=== PATIENT | female | born 1980 | race African-American/Black ===

== ENCOUNTER → 2021-04-04 02:25 | Outpatient (CLI) | payer OTHER, SELFPAY ==
[2021-04-04 19:19] LABS: SARS-CoV-2 RNA PCR Negative
== END ==
PROVIDERS: Visit Provider Internal Medicine Critical Care Medicine
DX: R68.89 Other general symptoms and signs (principal); Z20.822 Contact with and (suspected) exposure to COVID-19
CPT/HCPCS: C9803; U0003; U0005

== ENCOUNTER 2021-04-06 08:59 | Outpatient (CLI) | payer OTHER, SELFPAY ==
--- NOTE | 2021-04-08 18:21 | SLEEP_ITS ---
This report was moved to the correct visit on April 29, 2021. Original report was signed by Dr. Ana M Rubio on April 09, 2021 at 16:47. Sleep Study Date of Study: 04/06/21 Ordering Provider: Tree Montoya APRN Interpreting Physician: Ana M Rubio MD Sleep Study Type: Polysomnogram Height: 1.73 m Weight: 82.554 kg Body Mass Index: 27.6 Neck Circumference (inches): 14 [place]: 22 Reason for Sleep Study Excessive daytime sleepiness Sleep History Halley Farnsworth is a 41 year old female with excessive daytime sleepiness. She has nasal allergies, depression and GERD. She has a difficult time falling asleep and staying asleep. She describes having insomnia for 5 years without improvement with Ambien. She has nodded off at the wheel for 5 years. She is able to fall asleep standing and talking as well as eating. This has been going on for the last 2 and half years. It is also difficult for to fall asleep and stay asleep. She has been waking up earlier than expected for the last 10 years. She chokes in her sleep for the last 2 years. She twitches frequently at night. There is a family history of sleep issues with her mother having sleep apnea and insomnia. She frequently awakens from sleep feeling short of breath. She frequently awakens at night with heartburn, belching or coughing. She occasionally snores. She does not snore loudly enough that others complain about it. She occasionally has trouble sleeping the cold. She frequently wakes up gasping for breath during the night and frequently has breathing problems at night observed by others. She frequently sweats excessively at night and notices her heart pounding or beating irregularly at night. She occasionally falls asleep during the day, occasionally involuntarily and constantly this occurs while driving. She rarely has loss of muscle tone with strong emotion. She constantly has daytime difficulties due to excessive sleepiness. She frequently feels paralyzed on waking or falling asleep. She frequently has vivid dreamlike scenes upon awakening or falling asleep. She occasionally feels afraid to go to sleep. She occasionally has nightmares. She frequently remembers her dreams. She constantly has racing thoughts. She frequently feels sad or depressed. She constantly has anxiety. She constantly has muscular tension and notices parts of her body jerking. She constantly kicks at night. She frequently has crawling and aching feelings in her legs. She constantly has leg pain at night. She frequently has morning jaw pain. She does not grind her teeth during sleep. She constantly is bothered by pain during the day. She frequently is awakened by pain during the night. She constantly wakes up feeling stiff in the morning with sore or achy muscles and pain in the neck and spine. She has memory problems and fatigue. She has difficulties concentrating. Normal bedtime is 9:30 pm however she mcrae not fall asleep until 1:00 a.m.. She usually requires 2-3 hours to fall asleep. SHe wakes to urinate at night. It may take an hour to return to bed when she wakes in the night. He wakes at 4:00 am. Weekend schedule is the same. She is drowsy in the morning for 2 hours after waking. Habits: Never smoked. No caffeine or alcohol. No recreational drugs. FORMERLY [facility] Past Medical History Medical History Allergic rhinitis Angioedema Cervicalgia Episcleritis Esophageal reflux Female infertility Female infertility due to block of fallopian tube Headache syndrome Hemorrhoid Herniated disc, cervical History of torticollis Irritable bowel syndrome MDD (major depressive disorder) Refraction error Surgical History Surgical History H/O hernia repair H/O
--- NOTE | 2021-04-09 16:31 | SLEEP_ITS ---
This report was moved to the correct visit, [id number], on May 01, 2021. Original report was signed by Dr. Jaime Rubio on April 11, 2021 at 10:02. Sleep Study Date of Study: 04/07/21 Ordering Provider: Tree Montoya APRN Interpreting Physician: Ana M Rubio MD Sleep Study Type: Multiple Sleep Latency Test Height: 1.73 m Weight: 82.554 kg Body Mass Index: 27.6 Neck Circumference (inches): 14 [place]: 22 Reason for Sleep Study Excessive daytime sleepiness Sleep History See sleep history on the basic nocturnal polysomnogram April 06, 2021. She took a Lunesta 3 mg at 21:30 on April 06 at the start of the nocturnal polysomnogram. The patient had greater than 6 hours of sleep, AHI was 0.7, and she proceeded to this multiple sleep latency test per protocol. 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 Headache syndrome Hemorrhoid Herniated disc, cervical History of torticollis Irritable bowel syndrome MDD (major depressive disorder) Refraction error Surgical History Surgical History H/O hernia repair H/O sinus surgery Status post left foot surgery Family History Family History Father Diabetes mellitus Social History Social History Smoking status: Never smoker Medications Home Medications Medication Instructions Recorded Confirmed Type citalopram 10 mg tablet 10 mg PO DAILY 02/18/21 02/22/21 History linaclotide 72 mcg capsule 72 mcg PO DAILY 02/18/21 02/22/21 History cetirizine 10 mg capsule 10 mg PO DAILY PRN 02/22/21 02/22/21 History eszopiclone 3 mg tablet 3 mg PO QHS #1 tablet 02/22/21 02/22/21 Rx Sleep Procedure The recording montage for the MSLT includes central EEG (C3-A2, C4-A1) and occipital (O1-A2, O2-A1) derivations, left and right eye electrooculograms (EOGs), mental/submental electromyogram (EMG), and electrocardiogram (EKG). Nap 1 commenced at 7:33 a.m. Sleep onset occurred at 4 minutes 27 seconds. Sleep duration was 15 minutes 29 seconds. No REM occurred. Nap 1 was terminated at 7:53 a.m. The patient said that sleep occurred without dreaming. Nap 2 commenced at 9:33 a.m.. Sleep onset: 5 minutes 11 seconds. No REM. Nap 2 was terminated at 9:54 a.m. The patient said that sleep occurred and that she had dreaming. Nap 3 commenced at 11:33 a.m.. Sleep onset 1 minute 13 seconds. Sleep duration 13 minutes 17 seconds. No REM. Nap 3 was terminated at 11:52 a.m. The patient said that sleep occurred and that she had dreaming. Nap 4 commenced at 1:33 p.m. Sleep onset 11 minutes 39 seconds. Sleep duration 14 minutes 55 seconds. No REM. Nap 4 was terminated at 2:00 p.m. The patient said that sleep occurred and that she had dreaming. Nap 5 commenced at 3:33 p.m. Sleep onset: none. No REM. Nap 5 was terminated at 3:54 p.m. The patient said that sleep occurred and that she had dreams. The mean sleep latency is 8 minutes 30 seconds. The patient slept on 4 of 5 naps. There were no naps that showed REM sleep. The patient perceived sleep on 5 of 5 naps and reported dreaming on 4 naps, once when she was not asleep. Sleep Architecture NA Respiratory Analysis NA Arousals NA Periodic Limb Movements NA Oximetry Data NA Snoring Profile NA Cardiac Profile NA EEG Profile NA Assessment and Plan
== END 2021-04-06 09:00 | disposition home or self-care (01) ==
LOC: ANHCSM 09:01
PROVIDERS: Visit Provider Nurse Practitioner Family
DX: G47.10 Hypersomnia, unspecified (principal)
CPT/HCPCS: 95805; 95810

== ENCOUNTER 2021-10-17 10:09 | Outpatient (CLI) | payer OTHER, SELFPAY ==
--- NOTE | 2021-10-17 15:17 | WPDSIXMINUTE ---
Six Minute Walk Procedure Procedure Performed Pulmonary Stress Test (6 min walk) Six Minute Walk This is a 6 minute walk test. The test was performed and interpreted in accordance with the 2014 ERS/ATS task force guidelines. Findings: The patient's resting room air oxygen saturation measured by pulse oximetry was 98% and her heart rate was 86 bpm. Patient ambulated for 579 meters and oxygen saturation remained 92 to 99%. Heart rate at the end of the study was 81 bpm. The patient did not qualify for supplemental oxygen at rest or with ambulation. There are no prior studies for comparison.
--- NOTE | 2021-10-17 15:18 | WPDPFTINT ---
PFT Procedure Performed PFT Procedure Performed Spirometry with Pre/Post Bronchodilator Plethysmography (Lung Vol) Diffusing Cap (DLCO) Flow Vol Loop PFT Interpretation This is a pulmonary function test with pre and post-bronchodilator spirometry, plethysmography and diffusing capacity. The test was performed and results interpreted in accordance with the 2019 and 2005 ATS/ERS Task Force guidelines respectively using the Global Lung Function Initiative-2012 reference equations. Patient demonstrated good effort and cooperation. Reproducibility criteria were met. The quality of the pre bronchodilator spirometry maneuver was Grade B and post bronchodilator spirometry maneuver was Grade C. Findings: Spirometry: There is decreased maximal expiratory airflow at all lung volumes. Contour the inspiratory flow tracing is normal. The pre bronchodilator FVC is 3.83 L, 105% predicted. The pre bronchodilator FEV1 is 2.33 L, 79% predicted. The FEV1: FVC ratio 61%. The post bronchodilator FVC is 4.38 L, representing a 14% increase. The post bronchodilator FEV1 is 2.42 L, representing a 4% increase. The post bronchodilator FEV1: FVC ratio is 55%. Plethysmography: The total lung capacity is 6.02 L, 121% predicted. The functional residual capacity is 2.68 L, 89% predicted. The residual volume is 2.20 L, 132% predicted. Diffusion capacity: The absolute diffusion capacity is 22.9, 90% predicted. The diffusing capacity corrected for alveolar volume is 5.26, 115% predicted. Impression: There is a mild obstructive abnormality with a normal FEV1 and with significant improvement after inhaling a single dose of albuterol. The lung volumes are normal. The diffusing capacity is normal. There are no prior studies for comparison
== END 2021-10-17 10:10 | disposition home or self-care (01) ==
LOC: ANHPFT 10:10
PROVIDERS: Visit Provider Nurse Practitioner Family
DX: R06.00 Dyspnea, unspecified (principal); R94.2 Abnormal results of pulmonary function studies
CPT/HCPCS: 94060; 94618; 94726; 94729

== ENCOUNTER 2022-01-30 12:20 | Outpatient (CLI) | payer OTHER, SELFPAY ==
--- NOTE | 2022-01-30 16:19 | WPDMETH ---
Methacholine Procedure Perform Procedure Performed Methacholine Challenge Methacholine Challenge This is a methacholine challenge test. The test was performed and interpreted in accordance with the 2017 ERS technical standard, endorsed by the ATS, using the GLI 2012 reference equations. Testing was performed with increasing doses of nebulized methacholine following a quadrupling dosage protocol. The methacholine dose was delivered via the [employer] Micromist nebulizer using a 1-minutes tidal breathing protocol. The best post-methacholine FEV1 values were used to determine the change from the post diluent FEV1. The delivered dose of methacholine was used to calculate the provocative dose causing a 20% fall in FEV1 (PD20). Findings: Baseline FEV1 2.98 L, 100% predicted. Post diluent FEV1 2.87 L Post 1.81 mcg methacholine FEV1 2.77 L, decreased 3% Post 7.26 mcg methacholine FEV1 2.89 L, increased 1% Post 29.03 mcg methacholine FEV1 2.35 L, decreased 18% Post 116.1 mcg methacholine FEV1 2.34 L, decreased 18% Post 464.4 mcg methacholine FEV1 1.76 L, decreased 39% Post albuterol nebulization FEV1 3.22 L Impression: The PD20 is 130 mcg which is categorized as borderline airway hyperresponsiveness. There are no prior methacholine challenge studies for comparison
== END 2022-01-30 12:21 | disposition home or self-care (01) ==
LOC: ANHPFT 12:21
PROVIDERS: Visit Provider Nurse Practitioner Family
DX: R06.02 Shortness of breath (principal)
CPT/HCPCS: 94070; J7674